=== PATIENT | female | born 2000 | race Caucasian/White ===

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

== ENCOUNTER → 2021-03-13 11:38 | Outpatient (BNVA) | payer OTHER, SELFPAY | PROVIDERS: PCP Nurse Practitioner Family; Visit Provider Emergency Medicine | DX: Z20.822 Contact with and (suspected) exposure to COVID-19 (principal) | CPT/HCPCS: 87635 ==

== ENCOUNTER → 2021-05-05 17:20 | Outpatient (BNVA) | payer OTHER, SELFPAY | PROVIDERS: PCP Nurse Practitioner Family; Visit Provider Emergency Medicine | DX: Z20.822 Contact with and (suspected) exposure to COVID-19 (principal) | CPT/HCPCS: 87635 ==

== ENCOUNTER 2022-02-28 19:32 | Emergency (ER) | payer OTHER, SELFPAY ==
--- NOTE | 2022-02-28 19:51 | XRR_ITS ---
PROCEDURE INFORMATION: Exam: XR Left Knee Exam date and time: 02/28/2022 7:55 PM Age: 21 years old Clinical indication: Injury or trauma; Other: Kicking and felt knee twist; Other: Twisting of joint; Additional info: Pain TECHNIQUE: Imaging protocol: Radiologic exam of the Left knee. Views: 3 views. COMPARISON: No relevant prior studies available. FINDINGS: Bones/joints: Normal. Soft tissues: Normal. XR/XR knee LT 3V* [id number] IMPRESSION: No acute findings.
[2022-02-28 20:38] VITALS: BP 139/90; PULSE 109; RESP 16; TEMP 36.7; BMI 34.3
--- NOTE | 2022-02-28 20:49 | ED_ITS ---
HPI - Extremity Problem General: Chief complaint: Extremity Injury, Lower Stated complaint: left knee injury Time Seen by Provider: 02/28/22 20:48 History of Present Illness: 21-year-old female comes in today with injury to the left knee. Patient reports jumping and landing with her left leg on the ground and her right leg in a kick. Patient then did another bounce on the left leg with another kick with the right leg. Patient felt like her knee gave out and since then has had increased pain and discomfort with weightbearing to the knee. Review of Systems Musc: Reports: joint pain (Left knee) PFS ED PFSH: Medical History Iron deficiency Status migrainosus Family History Other No pertinent family history Social History Smoking and tobacco status: never smoked History of recent travel: No Female Reproductive History: Date of last menstrual period: 02/26/22 Physical Exam Const: COMMON NORMALS: alert HENMT: COMMON NORMALS: normocephalic HEAD & SCALP: normocephalic Resp: COMMON NORMALS: normal respiratory effort Cardio: COMMON NORMALS: regular rate RATE: regular rate Extremity: COMMON NORMALS: full ROM Neuro: SENSORIUM/ORIENTATION: Yes alert Skin: COMMON NORMALS: turgor normal GENERAL SKIN EXAM: turgor normal Course Vital Signs: Vital signs: Vital Signs Temperature 98.0 F 02/28/22 20:38 Pulse Rate 109 H 02/28/22 20:38 Respiratory Rate 16 02/28/22 20:38 Blood Pressure 139/90 02/28/22 20:38 Oxygen Delivery Me thod 02/28/22 20:38 MDM - Extremity (Nontraumatic) Medical Decision Making 21-year-old female comes in today for complaints of injury to the left knee. On exam patient has joint line tenderness on the medial aspect of the knee. Minimal swelling is noted. No tenderness is noted in the posterior part of the knee. Distal pulses and sensation are intact. Differential diagnosis includes but not limited to knee sprain, ACL/MCL injury, meniscal injury, fracture. X- ray noted no fracture or misalignment of the knee. Recommend patient go nonwei ghtbearing and use an elastic bandage and follow-up in 1 week with orthopedics for further evaluation and treatment. Patient was recommended to decrease activity and increase as tolerated. Case management was requested to assist patient with follow-up with orthopedics. Patient reported understanding agreed to plan. Lab Data Radiology Impressions Knee X-Ray 02/28/22 19:51 IMPRESSION: No acute findings. Discharge Plan Discharge Patient Disposition: Home Clinical Impression: Acute internal derangement of knee Qualifiers: Laterality: left Qualified Code(s): M23.92 - Unspecified internal derangement of left knee Condition: Stable Prescriptions: New ibuprofen 600 mg tablet 600 mg PO Q6H PRN (Reason: pain) Qty: 60 0RF Discharge Orders: Discharge ED (Routine); Ordered 02/28/22 Ordered By: Max Mcnamara Patient Instructions: Knee Sprain (ED) Activity Restrictions/Additional Instructions: Home and rest. Activity as tolerated. Increase weightbearing as tolerated. Use crutches until he can bear weight comfortably. Use ice and heat for further comfort. Use acetaminophen and ibuprofen for pain. Case management will contact you regarding follow-up with orthopedist. Coding Level of Care Code ED Independent Jeweler for Naveed Win
[2022-02-28 21:26] VITALS: BP 137/88; PULSE 97; RESP 18; TEMP 36.7; O2SAT 98
--- NOTE | 2022-03-01 10:37 | DCPLANNER ---
Addendum entered by Agnes Christiansen 03/06/22 15:15: Patient had a follow up appointment scheduled with ortho - patient did attend appointment. Addendum entered by Agnes Christiansen 03/01/22 14:45: Patient has a follow up appointment scheduled for Thursday, March 03, 2022 at 9:[address] Bates at ortho. Clinic will call patient with appointment information. Original Note: guest relations manager had message to schedule a follow up appointment for patient with ortho. guest relations manager sent patients information to the front office staff at ortho. Patients information will be printed and reviewed. Clinic will call patient with appointment information.
== END 2022-02-28 21:30 | disposition home or self-care (01) ==
PROVIDERS: Emergency Provider Nurse Practitioner Family
DX: M23.92 Unspecified internal derangement of left knee (principal)
CPT/HCPCS: 73562; 99283; E0114

== ENCOUNTER 2022-03-03 13:37 | Outpatient (CLI) | payer OTHER, SELFPAY | END 2022-03-03 13:38 | disposition home or self-care (01) | LOC: SPT 13:38 | PROVIDERS: Visit Provider Student in an Organized Health Care Education/Training Program | DX: S83.512D Sprain of anterior cruciate ligament of left knee, subsequent encounter (principal); X58.XXXD Exposure to other specified factors, subsequent encounter | CPT/HCPCS: 97760; L1832 ==

== ENCOUNTER 2022-03-06 17:43 | Outpatient (CLI) | payer OTHER, SELFPAY ==
--- NOTE | 2022-03-06 17:57 | MR_ITS ---
WS: [id number] MRI LEFT KNEE HISTORY: Tears of meniscus and ACL of left knee COMPARISON: Radiographs 02/28/2022 Anterior cruciate ligament: Acute, complete tear of the central ACL. There is a large amount of edema especially within the proximal ACL. Posterior cruciate ligament: Intact. Medial collateral ligament: Intact. Posterior lateral corner structures: Fluid along the proximal popliteus tendon. Medial menisci: Very slight increased T2 signal towards the meniscal root of the posterior horn. Susp icious for a very subtle tear. Anterior horn is negative. Lateral meniscus: No tear. Extensor mechanism: Distal quadriceps tendon and patellar tendons are intact. Fluid and soft tissue: Moderate joint effusion. There is fluid in the suprapatellar bursa but also po sterior to the femoral condyles and in the surrounding soft tissues. There is a well rounded 6.3 mm l oose body in the fluid along the posterior lateral femoral condyle. No Israel's cyst. Osseous and articular structures: Patellofemoral compartment: Normal. Medial compartment: No significant narrowing of the medial compartment. Large amount of marrow edema along the medial tibial plateau and a small amount of edema in the medial femoral condyle. Lateral compartment: No significant narrowing of the joint spaces. There is a large amount of marrow edema in the tibial plateau and additional moderate marrow edema in the anterolateral femoral condyle . MR/MR knee LT wo con* [id number] IMPRESSION: 1. Complete tear ACL. 2. Extensive marrow edema along the tibial plateau. Marrow edema involves the medial and lateral tibial plateau and greatest posteriorly. 3. Additional marrow edema within the femoral condyles. No fracture. 4. Moderate joint effusion with a 6.3 mm loose body in the fluid over the post erior lateral femoral condyle. Donor site undetermined. 5. Popliteus tendon sprain. 6. Highly suspicious but indeterminate for meniscal tear involving the menisca l root posterior horn medial meniscus.
== END 2022-03-06 17:44 | disposition home or self-care (01) ==
LOC: RAD 17:45
PROVIDERS: Visit Provider Student in an Organized Health Care Education/Training Program
DX: S83.512A Sprain of anterior cruciate ligament of left knee, initial encounter (principal); S83.207A Unspecified tear of unspecified meniscus, current injury, left knee, initial encounter; X58.XXXA Exposure to other specified factors, initial encounter
CPT/HCPCS: 73721

== ENCOUNTER 2022-03-17 08:54 | Day surgery (SDC) | payer OTHER, SELFPAY ==
[2022-03-16 10:01] VITALS: BMI 34.3
[2022-03-17] VITALS (10 sets, daily range): BP systolic 127–153; BP diastolic 78–100; PULSE 70–113; RESP 15–29; TEMP 36.4–37.3; O2SAT 93–99
[2022-03-17] MEDS: sodium chloride 0.9% 1,000 ML 30 ML IV (09:33)
[2022-03-17] MEDS: ketorolac 30 mg/mL INJ IVP (09:34)
--- NOTE | 2022-03-17 09:49 | ANES.PREANE2 ---
Pre-Anesthetic Assessment Height/Weight: Height 1.5 m Weight 77.111 kg Temp Pulse Resp BP Pulse Ox O2 Del Method 98.1 F 70 16 145/89 99 03/17/22 09:10 03/17/22 09:10 03/17/22 09:10 03/17/22 09:10 03/17/22 09:10 03/17/22 09:10 Preop Diagnosis: Left knee ACL tear, medial meniscus root tear, loose body Operation Date: 03/17/22 10:30 Proposed Procedures p [LEFT KNEE DIAGNOSTIC AND SURGICAL ARTHROSCOPY 59037, ANTERIOR CRUCIATE LIGAMENT RECONSTRUCTION WITH BONE TENDON BONE AUTOGRAFT 79219, LOOSE BODY REMOVAL 14434, WITH MEDIAL MENISCAL REPAIR VERSUS PARTIAL MEDIAL MENISCECTOMY 65417,M25.569(Left) - Ben Pollack DO s ACL Repair Anterior Cruciate Ligament Reconstruction(Left) - Ben Pollack DO Familial anesthetic complications: none Was Beta Amira taken within 24 hours: N/A Was Clonidine taken within 24 hours: N/A Last intake: Intake Last Liquid Date 03/16/22 Last Liquid Time 23:00 Last Solid Date 03/16/22 Last Solid Time 22:00 Social No alcohol and No tobacco Exam alert, oriented x 3, clear to auscultation bilaterally and regular rate & rhythm Airway Submandibular: within normal limits Cervical ROM: within normal limits Mallampati: Class II Dentition: full CV/HEM Anemia Anesthetic Plan ASA status: 2 Anesthesia: General and Regional (specify below) (adductor blk) Medications/Allergies Home Medications Medication Instructions Recorded Confirmed Last Taken Type ACL HINGED KNEE BRACE - LEFT #1 ea 03/03/22 03/13/22 Unknown Rx Allergies Allergy/AdvReac Type Severity Reaction Status Date / Time acetaminophen [From Vicodin] Allergy Swelling Verified 03/16/22 09:54 and breathing problems hydrocodone [From Vicodin] Allergy Swelling Verified 03/16/22 09:54 and breathing problems Penicillins Allergy swelling Verified 03/16/22 09:54 and breathing problems Current Medications Generic Name Dose Route Start Last Admin Trade Name Freq PRN Reason Stop Dose Admin Sodium Chloride 1,000 mls @ 30 mls/hr 03/17/22 09:00 03/17/22 09:33 Sodium Chloride 0.9% IV 03/18/22 08:59 30 mls/hr .Q24H GIL Administration PFSH Anesthesia Medical History Iron deficiency Status migrainosus Tears of meniscus and ACL of left knee Family History Other No pertinent family history Social History Smoking and tobacco status: never smoked History of recent travel: No Female Reproductive History Date of last menstrual period: 02/26/22 Data Anesthesia Cardiac Studies: No Data to Display
--- NOTE | 2022-03-17 11:15 | W.PM.OPSUD ---
Surgery/Procedure H&P Update DATE OF PROCEDURE: March 17, 2022 DATE H&P PERFORMED: 03/13/22 CHANGES TO PREVIOUS DOCUMENTATION: None PREOP DIAGNOSIS: Left knee ACL tear, medial meniscus root tear, loose body PRIMARY INDICATION FOR PROCEDURE: Left knee complete ACL tear, medial meniscal root tear and loose body. PLANNED PROCEDURE: Operation Date: 03/17/22 10:30 Proposed Procedures p [LEFT KNEE DIAGNOSTIC AND SURGICAL ARTHROSCOPY 24979, ANTERIOR CRUCIATE LIGAMENT RECONSTRUCTION WITH BONE TENDON BONE AUTOGRAFT 47516, LOOSE BODY REMOVAL 25244, WITH MEDIAL MENISCAL REPAIR VERSUS PARTIAL MEDIAL MENISCECTOMY 23403,M25.569(Left) - DO cathryn Levin ACL Repair Anterior Cruciate Ligament Reconstruction(Left) - Ben Pollack DO
[2022-03-17] MEDS: vancomycin 1,000 MG in sodium chloride 0.9% 250 ML 250 MG IV (11:23)
--- NOTE | 2022-03-17 13:33 | PC.NURSE ---
CALLED TO UPDATE NAINA CESAR, OF PROCEDURE PROGRESS. STATED VSS.
--- NOTE | 2022-03-17 14:23 | ANES.PROC ---
Anesthesia Procedures Procedure/Date: 03/17/22 Nerve Block ^: Nerve Block 1: Main Anesthesia: general anesthesia Time Out Performed: Yes Consent: requested by attending/covering physician, from patient, risks and benefits reviewed and patient agrees to proceed Nerve block location: adductor canal (left) Anesthesia monitors applied: pulse oximetry, EKG, BP cuff and oxygen Nerve block position: supine Anesthetic Used: ropivicaine 0.5% Amount of anesthesia used (mL): 20 Ultrasound used to: recognize landmarks Nerve Stimulator Used?: No Interscalene/Femoral BLK: 4 stimuplex 21 g needle used for position and inplane approach Injection: neg aspiration of heme Patient Tolerated Procedure: well Complications: none
--- NOTE | 2022-03-17 15:30 | SUR.PHASEI ---
patient into pacu with lma in place and simple mask at 8L. Patient sats at 99%. patient has dressing to left knee in place and dry, knee brace in place. lma removed by wood model maker. remains on simple mask with sat at 97%.
--- NOTE | 2022-03-17 15:46 | PM.OP2 ---
Brief Operative Note Date of procedure: 03/17/22 Pre-op diagnosis: Left knee ACL tear, medial meniscus tear, loose body Post-op diagnosis: other (Left knee complete ACL tear) Procedure Done: Left knee diagnostic and surgical arthroscopy with bone patellar tendon bone autograft and ACL reconstruction Surgeon: Ben Pollack Estimated blood loss (mL): 15 Complications: None Post-op Plan: Patient recover in PACU. Given appropriate discharge instructions as well as pain medication. Patient to follow-up in orthopedic office in 2 weeks. Will discharge home later today. Condition: stable Disposition: same day Coding Level of Care Code Acute Saturation Equipment Operator for Naveed Win
--- NOTE | 2022-03-17 15:49 | PM.PACU ---
PACU note Narrative: Patient recovering in PACU. Patient wiggle toes plantarflex dorsiflex ankle toes are warm well-perfused distal pulses palpable. Knee brace on and in place. Patient will recover in PACU and discharge home later today. Exam: awake (See narrative for detailed exam) Disposition: discharged
[2022-03-17] MEDS: ondansetron 2 mg/ML SDV 2 mL 4 MG IVP (16:25)
--- NOTE | 2022-03-17 16:40 | ANE.PACU2 ---
Inpatient post-anesthesia follow up: Airway intact: Yes Vital signs: Temperature 98 F Pulse Rate 98 Respiratory Rate 18 Blood Pressure 141/78 Pulse Oximetry 94 Oxygen Delivery Me thod Room Air Oxygen Flow Rate 8 Fraction of Inspir ed Oxygen Hydration adequate: Yes Nausea and vomiting: No Pain level: 3 Mental status: Baseline
--- NOTE | 2022-03-17 17:00 | P.OP_ITS ---
Operative Report Date of procedure: March 17, 2022 Pre-op diagnosis: Preop Diagnosis Left knee ACL tear, medial meniscus root tear, loose body Post-op diagnosis: Left knee complete ACL rupture Post-op findings: No medial meniscus root tear and no evidence of loose body or cartilage defect Procedure done: Left knee diagnostic and surgical arthroscopy with bone patellar tendon bone autograft, ACL reconstruction Implants: Arthrex titanium cannulated interference screw Arthrex fast thread bio composite interference screw 4.75 bio composite swivel lock Surgeon: Ben Pollack DO Estimated blood loss (mL): 15 135 min IV fluids: See anesthesia record Complications: None Findings: See operative note Condition: stable Disposition: same day Brief History: Patient's been seen and worked up in the outpatient setting sustained a noncontact injury to her left knee. She had a positive Hailey on examination she had a MRI that was performed showed findings with concerning for possible medial meniscus tear a complete ACL rupture as well as a possible loose body with no noticeable cartilage donor site. Given her young age would recommend surgical intervention of left knee diagnostic and surgical arthroscopy with bone patellar tendon bone autograft for ACL reconstruction, as well as loose body rem oval and medial meniscus repair versus partial meniscectomy. Had detailed discussion of his treatment options of the office. She understands the risk benefits complications alternatives to surgical and nonsurgical treatment options at this point time agrees to proceed with surgical intervention. All questions answered. Procedure: Patient seen evaluated in preoperative holding area. Consent was reviewed with patient. Correct extremity was then marked. Patient was seen evaluated by the anesthesia department once ready for surgery she was taken back to the operative suite and placed onto the OR table. She then underwent anesthesia per the anesthesia department. All bony prominences were well-padded patient was appropriately secured to the table. A nonsterile tourniquet was applied to the left thigh. This point time the foot of the bed was then dropped the right lower extremity was secured in the left knee was allowed to suspend a standard arthroscopy post was placed on the lateral aspect of the left knee. Examination under anesthesia performed of the left knee demonstrating a a positive Hailey with no endpoint as well as a positive pivot shift. No evidence of varus valgus instability noted. She does have baseline naturally hyperextend 5 to 10 degrees. With full flexion noted. This point time the left lower extremities then prepped and draped in standard orthopedic fashion. Patient received appropriate preoperative antibiotics. Final timeout was performed. Esmarch tourniquet was used exsanguinate the extremity and the tourniquet was insufflated. This point time started with my BTB graft harvest. Standard midline incision centered over the inferior pole the patella and over the tibial tubercle sharp scalpel incision through subcutaneous tissue and fat and then directly down over the peritenon which was split longitudinally I then dissected this out with Metzenbaum scissors to create appropriate full-thickness flaps. Next point I then identified the patellar tendon I then marked out the appropriate bone plugs both proximally and distally and then a standard 10 mm graft with of the center third of the patellar tendon. I then initially made incision harvesting the BTB. With 15 blade scalpel with care to keep this under appropriate tension next I then utilized a microsagittal saw and harvested by bone plugs both proximally and distally. While in the wound bed I then drilled my commuter pilot holes for suture passing for later graft passage. I utilized 1/4 inch osteotome to free up the graft and then utilized Metzenbaum scissors to excise out both plugs and the rest of the tendon. I then took my graft to the back table. This measured roughly a total graft length of 80 mm which given patient's stature anticipated a shorter graft. Bone plugs passed smoothly through 10 mm. I then showed old 2-0 FiberWire's through each end of the bone plugs and then this was then wrapped in a moist lap and was protected on the back table. Next I proceeded with my diagnostic and surgical arthroscopy using standard vertical portals laterally and medially. I then entered the suprapatellar pouch evacuated hemarthrosis. No chondral damage was noted in the patellofemoral joint and the suprapatellar pouch was free of any loose bodies. I then went through the medial gutter no loose bodies noted. Entering the medial compartment I established my medial portal utilizing spinal needle site in technique. Entered the medial compartment which showed pristine articular cartilage of the medial compartment and no evidence of medial meniscus tear. I then utilizing a valgus stress as well as introduced the probe I then evaluated the posterior medial meniscus root and probed this and thoroughly evaluated and no evidence of medial meniscus tear at the root was noted. I then entered the intercondylar notch this point utilized arthroscopic shaver then to debrided and remove the ACL this was completely ruptured off the femoral wall. I then debrided and left the footprint at the tibial insertion to allow for a target for my tibial guide. Next I then debrided the rest of the ACL keeping the PCL intact which was pristine. I then performed a small notchplasty just for better visualization and graft tunnel placement. Once this was completed I then entered the lateral compartment which showed no evidence of lateral meniscus tear with pristine lateral articular cartilage. I then reviewed the lateral gutter and there is no evidence of loose bodies. I then drove into the retrograde she had space and then tapped the back of the knee to try and evaluate her to see if any loose body would come free. I utilized the probe and to the popliteal hiatus and under direct visualization there was no evidence of any loose body. At this point time I determine that the MRI findings of a possible medial root tear did not exist as this was probed and viewed thoroughly and was robustly fixed and no evidence of tear as far as a loose body there was no evidence in any aspect of this knee or any cartilage damage noted where a donor site would have been consistent for a loose body as a result I proceeded with the ACL reconstruction. I started with my tibial tunnel placement. I sent my appropriate guide length to accommodate patient's shorter graft. At this point time I then drilled a guidewire this was centered at the footprint of the ACL. Satisfied with my placement I then drilled utilizing a 10 mm reamer. This point we captured all of the reamings and saved for later bone grafting of our removed bone plugs. I introduced the arthroscopic shaver to then debride the bone tunnel and any debris along the footprint. Once this was done I then plugged the tibial tunnel and then proceeded with the femoral tunnel. I switched arthroscopic portals and then had direct visualization of the posterior wall and my planned placement at the 2 o'clock position of the intercondylar notch at the appropriate femoral tunnel placement. I then utilized an outside hand guide. To my lateral portal. I then slid down the guide sleeve to david my entry point for incision I then made my standard lateral incision sharp scalpel excision through skin and subcutaneous tissue directly onto IT fascia. This was split longitudinally at the midline. I then dissected straight down to bone. I cleared off any periosteum side have direct visualization of my bone tunnel. I then slid the drill sleeve down while holding in anatomic femoral tunnel placement position I then drilled a guidepin this was in appropriate position and then reamed with my 10 mm reamer. We then drove the camera up the femoral tunnel and had excellent position with no backwall blowout appropriate 2 to 3 mm of backwall was left. This was an appropriate 2 o'clock position. Point time introduce arthroscopic shaver debrided all residual bony fragments in each tunnels it was ready for graft passage. I then introduced my shuttling FiberWire suture through the femoral tunnel and out the tibial tunnel I then grabbed my BTB autograft from the back table and then loaded my sutures and shuttled of my graft up through the bone tunnels. This was done under direct visualization with arthroscopy. I then felt both bone plugs on both ends with appropriate tunnel match. This point time I started with my femoral tunnel interference screw fixation I had my graphic design assistant hold tension on my tibial bone plug in the knee was placed in deep flexion. I then placed my guidewire beside my femoral bone plug and then placed my appropriately sized interference screw and had excellent fixation this was secured appropriately while holding appropriate tension and had excellent fixation and compression of the interference screw and bone plug. This was made to be flush with the bone and no protrusion was noted. At this point time I then maintain tension and cycled the knee 20 times. This point time then move towards our tibial fixation. Brought into Daugherty stand and held the knee and 20 degrees while axially loading and pulling with extreme tension introduced my my guidewire and then introduced my interference screw which was metal. While introducing metal interference screw this did not appear to cut one of my sutures and lose some my traction ability to keep tension on my bone plug. As result to help augment with this traction I then introduced 2 Arthrex is meniscal fiber loop luggage tag sutures. These were then again shuttled back down through the tibial tunnel. I then again recycled the knee to condition the graft. I positioned the knee to 20 degrees of flexion with axial loading holding downward inferior pressure on the FiberWire tape suture at this point I then utilized a Arthrex bio composite screw which then maintaining appropriate tension had excellent fixation of my tibial bone plug. In order to backup fixation I then loaded up my suture tape and then drilled tapped and then placed a 4.75 swivel lock with Arthrex into the medial face of the tibia just distal to my tibial tunnel. This completed my ACL reconstruction at this point patient had a very stable and robust Hailey's with no laxity. Negative pivot shift this point time took final imaging of the ACL reconstruction appropriate tunnel placement. All fluid was evacuated from the knee. Tourniquet was deflated. Hemostasis was found to be satisfactory. I then reapproximated my patellar tendon with 0 Vicryl suture. I then packed the harvested bone graft reamings into the patella and tibial tubercle bone plug sites. I then closed the peritenon over this. I then utilized 0 and 2-0 Vicryl to close the subcutaneous and skin and then Monocryl was used to close skin edges. Dermabond glue was placed over the incision anteriorly and then an interrupted Monocryl suture was used to close the portal. Those incisions were then approximated with Steri-Strips. The lateral incision of the femur was then closed in deep to superficial fashion with 0 interrupted Vicryl suture to reapproximate the IT band 2-0 Vicryl and then running Monocryl suture as well as Dermabond and Steri-Strips close the skin. Toes are warm well perfused distal pulses palpable. Patient's incisions were then appropriately dressed with 4 x 4's ABD Curlex soft roll and a 6 inch Daljit wrap. When patient was awakened from anesthesia she was appropriately secured in her ACL hinged knee brace. She was then awakened from anesthesia transported the [facility] and taken to PACU in stable condition. Time patient tolerated procedure without complications. Disposition: Patient taken to PACU in stable condition. ACL hinged knee brace on in place. Will be given appropriate discharge instructions as well as pain medication DVT prophylaxis as well as anti-inflammatory medication and antinausea medication. She will follow-up with me in office in 2 weeks. We will coordinate with patient's therapy and corporate sales trainer as far as postoperative rehab protocol.
--- NOTE | 2022-03-18 15:29 | P.MISC_ITS ---
Miscellaneous Note Purpose of Documentation: 03/18/2022: Was contacted earlier this morning by patient's mother through the on-call service as she states patient was having significant pain and issues. Asked if her toes were warm her perfusion is still felt slightly cold but she was able to wiggle her toes and endorses normal sensation. She has had her dressing as well as brace on in place. Unfortunately patient is taken [place] in the past and had some issues with swelling and breathing as result we had to give her tramadol for her pain. This point time our options as far as pain medication are somewhat limited. Had detailed discussion with her about starting off with taking down patient's Daljit wrap to loosen as normal postoperative swelling it may become too tight. In the meantime I looked over patient's chart with our pharmacist just to see if there is any possible options of alternative medications for pain. We talked about increasing patient's tramadol up to 100 mg every 6 hours which we will send her a new prescription in for that. She did receive some Dilaudid intraoperatively at this point time we will try giving her a small dose of rescue breakthrough pain of a p.o. Dilaudid. And we will discontinue the Mobic and have patient take 800 mg ibuprofen every 6. Couple hours later patient's mother was contacted to evaluate how she was doing. Patient mother states her pain is significantly relieved and feels extremely better after having the Daljit wrap taken down. She states her foot feels significantly improved warm well-perfused brisk capillary refill less than 2 seconds. At this point time her pain is well controlled with her medications. Sounds as though patient's dressing had gotten too tight sounds as this is resolved most of her pain or discomfort. In the meantime though we will change some of her pain regimen just to help her get the pain through the weekend. I did discuss about sending the Dilaudid in that it seems as though she should be able to tolerate this medication but if they have any questions or concerns should only use this as a last ditch effort. Understand she should take some Benadryl if they notice any symptoms when they take the Dilaudid or report to the emergency department. We sent new prescriptions to patient's pharmacy in [place]. Mom very appreciative. We will see her at her follow-up visit.
[2022-03-21 08:44] LABS: OR HCG Qualitative Urine Negative (Negative)
== END 2022-03-17 17:40 | disposition home or self-care (01) ==
PROVIDERS: PCP Family Medicine; Visit Provider Student in an Organized Health Care Education/Training Program
PROC: (CPT 29870; principal; 2022-03-17 10:30)
PROC: (CPT 27407; 2022-03-17 10:30)
DX: S83.512A Sprain of anterior cruciate ligament of left knee, initial encounter (principal); S83.242A Other tear of medial meniscus, current injury, left knee, initial encounter; M23.42 Loose body in knee, left knee
CPT/HCPCS: 29861; 29888; 36415; 81025; 84703; 86850; 86900; C1713; J1170; J1885; J2250; J2405; J2704; J2795; J3010; J3370; J3490; J7030; J7050

== ENCOUNTER 2022-03-21 06:00 | Outpatient (RCR) | payer OTHER, SELFPAY | END 2022-04-17 23:59 | disposition home or self-care (01) | LOC: MPT 06:00 | PROVIDERS: PCP Family Medicine; Visit Provider Student in an Organized Health Care Education/Training Program | DX: Z47.89 Encounter for other orthopedic aftercare (principal); M25.562 Pain in left knee | CPT/HCPCS: 97110; 97161 ==

== ENCOUNTER → 2022-03-31 08:08 | Outpatient (BNVA) | payer OTHER, SELFPAY | PROVIDERS: PCP Family Medicine; Visit Provider Student in an Organized Health Care Education/Training Program | DX: S83.512A Sprain of anterior cruciate ligament of left knee, initial encounter (principal); X58.XXXA Exposure to other specified factors, initial encounter | CPT/HCPCS: 73560 ==

== ENCOUNTER 2022-04-18 06:00 | Outpatient (RCR) | payer OTHER, SELFPAY | END 2022-05-17 23:59 | disposition home or self-care (01) | LOC: MPT 06:00 | PROVIDERS: PCP Family Medicine; Visit Provider Student in an Organized Health Care Education/Training Program | DX: Z47.89 Encounter for other orthopedic aftercare (principal); M25.562 Pain in left knee | CPT/HCPCS: 97110; 97112 ==

== ENCOUNTER 2022-05-18 06:00 | Outpatient (RCR) | payer OTHER, SELFPAY | END 2022-06-17 23:59 | disposition home or self-care (01) | LOC: MPT 06:00 | PROVIDERS: Visit Provider Student in an Organized Health Care Education/Training Program | DX: Z47.89 Encounter for other orthopedic aftercare (principal); M25.562 Pain in left knee | CPT/HCPCS: 97110; 97112; 97140; 97530 ==

== ENCOUNTER 2022-05-26 05:53 | Day surgery (SDC) | payer OTHER, SELFPAY ==
[2022-05-25 09:55] VITALS: BP 121/70; PULSE 91; RESP 16; TEMP 36.2; O2SAT 99
[2022-05-25 12:41] VITALS: BMI 34.3
[2022-05-26] VITALS (10 sets, daily range): BP systolic 99–130; BP diastolic 59–91; PULSE 81–104; RESP 12–18; TEMP 35.9–36.3; O2SAT 95–100
[2022-05-26 06:09] LABS: OR HCG Qualitative Urine Negative (Negative)
[2022-05-26] MEDS: sodium chloride 0.9% 1,000 ML 30 ML IV (06:42)
[2022-05-26] MEDS: ketorolac 30 mg/mL INJ IVP (06:42)
[2022-05-26] MEDS: clindamycin 600 MG/50 ML PREMIX 100 MG IV (07:03)
--- NOTE | 2022-05-26 07:06 | W.PM.OPSUD ---
Surgery/Procedure H&P Update DATE OF PROCEDURE: May 26, 2022 DATE H&P PERFORMED: 05/23/22 CHANGES TO PREVIOUS DOCUMENTATION: None We had discussion about her current range of motion which is roughly 0-1 15. She has been able to get up to 120 in physical therapy. However she feels as though she is plateaued over the past several weeks and ultimately for her her baseline is over 130 degrees. At this point time we discussed her treatment options and she would really like to regain her last 10 to 15 degrees range of motion to be more comparable to her contralateral extremity. She does understand the importance of her immediate range of motion after. We will get her an aggressive physical therapy. Understands risk benefits complication alternatives of surgical treatment options and agrees to proceed. PREOP DIAGNOSIS: Left knee arthrofibrosis PRIMARY INDICATION FOR PROCEDURE: Left knee arthrofibrosis status post left knee ACL reconstruction PLANNED PROCEDURE: Operation Date: 05/26/22 07:00 Proposed Procedures p Left knee manipulation under anesthesia 21143 and Diagnostic and surgical left knee lysis of adhesions 09656,M24.661(Left) - DO cathryn Levin Diagnostic and surgical left knee lysis of adhesions 44315(Left) - Ben Pollack DO
--- NOTE | 2022-05-26 07:42 | ANES.PREANE2 ---
Pre-Anesthetic Assessment Height/Weight: Height 1.5 m Weight 77.111 kg Temp Pulse Resp BP Pulse Ox O2 Del Method 97 F L 83 18 120/71 97 05/26/22 06:18 05/26/22 06:18 05/26/22 06:18 05/26/22 06:18 05/26/22 06:18 05/26/22 06:21 Preop Diagnosis: Left knee arthrofibrosis Operation Date: 05/26/22 07:00 Proposed Procedures p Left knee manipulation under anesthesia 79174 and Diagnostic and surgical left knee lysis of adhesions 09293,M24.661(Left) - Ben Pollack DO s Diagnostic and surgical left knee lysis of adhesions 42005(Left) - Ben Pollack DO Familial anesthetic complications: none Was Beta Amira taken within 24 hours: N/A Was Clonidine taken within 24 hours: N/A Last intake: Intake Last Liquid Date 05/25/22 Last Liquid Time 22:00 Last Solid Date 05/25/22 Last Solid Time 22:00 Social No alcohol and No tobacco Exam alert, oriented x 3, clear to auscultation bilaterally and regular rate & rhythm Airway Submandibular: within normal limits Cervical ROM: within normal limits Mallampati: Class II Dentition: full CV/HEM Anemia Anesthetic Plan ASA status: 2 Anesthesia: General and Regional (specify below) (left adductor blk) Medications/Allergies Home Medications Medication Instructions Recorded Confirmed Last Taken Type leg brace 03/17/22 05/23/22 Unknown History hydromorphone 2 mg tablet 2 mg PO Q4H PRN pain, severe 5 03/18/22 05/25/22 Unknown Rx (Dilaudid) days #30 tabs ibuprofen 800 mg tablet 800 mg PO Q6H 14 days #56 tabs 03/18/22 05/26/22 05/24/22 17:00 Rx Allergies Allergy/AdvReac Type Severity Reaction Status Date / Time acetaminophen [From Vicodin] Allergy Swelling Verified 05/25/22 12:40 and breathing problems hydrocodone [From Vicodin] Allergy Swelling Verified 05/25/22 12:40 and breathing problems Penicillins Allergy swelling Verified 05/25/22 12:40 and breathing problems Current Medications Generic Name Dose Route Start Last Admin Trade Name Freq PRN Reason Stop Dose Admin Sodium Chloride 1,000 mls @ 30 mls/hr 05/26/22 06:00 05/26/22 06:42 Sodium Chloride 0.9% IV 05/27/22 05:59 30 mls/hr .Q24H GIL Administration PFSH Anesthesia Medical History Complete tear of anterior cruciate ligament of left knee Iron deficiency Status migrainosus Tears of meniscus and ACL of left knee Family History Other No pertinent family history Social History Smoking and tobacco status: never smoked History of recent travel: No Female Reproductive History Date of last menstrual period: 02/26/22 Data Anesthesia Cardiac Studies: No Data to Display Anesthesia Procedures Nerve Block Nerve Block 1: Main Anesthesia: general anesthesia Time Out Performed: Yes Consent: requested by attending/covering physician, from patient, risks and benefits reviewed and patient agrees to proceed Nerve block location: adductor canal (left) Anesthesia monitors applied: pulse oximetry, EKG, BP cuff and oxygen Nerve block position: supine Anesthetic Used: ropivicaine 0.5% Amount of anesthesia used (mL): 20 Ultrasound used to: recognize landmarks Nerve Stimulator Used?: No Interscalene/Femoral BLK: 4 stimuplex 21 g needle used for position and inplane approach Injection: neg aspiration of heme Patient Tolerated Procedure: well Complications: none
--- NOTE | 2022-05-26 08:37 | P.OP_ITS ---
Brief Operative Note Date of procedure: 05/30/22 Pre-op diagnosis: Left knee arthrofibrosis status post ACL reconstruction Post-op diagnosis: same Procedure Done: Left knee manipulation under anesthesia Left knee arthroscopy with lysis of adhesions Surgeon: Ben Pollack Estimated blood loss (mL): 5 Complications: None Post-op Plan: Patient taken to PACU in stable condition recovering well. Dressing on in place clean dry and intact. Patient received appropriate discharge instructions as well as DVT prophylaxis and pain medication postoperatively. We will get her aggressively working with therapy with goals of 3 times a week to aggressively regain her range of motion that she had broken through scar from surgery. Patient can be weightbearing as tolerated left lower extremity she will see me in office in 2 weeks. Condition: stable Disposition: same day Coding Level of Care Code Acute Senior Biostatistician/Group Leader for Naveed Win
--- NOTE | 2022-05-26 08:37 | PM.PACU ---
PACU note Narrative: Patient recovering well in PACU. Pain well controlled. Dressing clean dry and intact. Patient able to wiggle toes plantarflex dorsiflex ankle. Sensation intact light touch distally. Exam: awake Disposition: discharged
--- NOTE | 2022-05-26 08:37 | PM.OP ---
Operative Report Date of procedure: May 26, 2022 Pre-op diagnosis: Preop Diagnosis Left knee arthrofibrosis Post-op diagnosis: Same Procedure done: -Left knee manipulation under anesthesia -Left knee diagnostic and surgical arthroscopy with lysis of adhesions Surgeon: Ben Pollack DO Estimated blood loss: 5 mL No tourniquet used IV fluids: See anesthesia record Complications: None Findings: See operative report narrative Condition: stable Disposition: same day Brief History: Patient's status post left knee ACL reconstruction with bone patellar tendon bone autograft. Overall she is progressed well after surgery. However she is plateaued with her range of motion. She is worked aggressively with therapy and has reached a halt and plateauing of her knee flexion. She does achieve full knee extension. Her Hailey's and's intact with good endpoint. At this point time she does have excessive range of motion on the contralateral knee and ultimately she would like for her needed touch the back of her leg. Currently she is 0-1 10 this morning and is plateaued between 110 and 115 with therapy. They have documented that they have been able to work her up to 120. However she easily ranges to greater than 135 at baseline in the office on the contralateral knee. We talked about treatment options far as continuing with therapy versus a manipulation under anesthesia and lysis of adhesions. Through shared decision making her her mother agreed to proceed with surgical intervention as patient feels she is unable to achieve this. I do feel examination irby that she does have some lack of patellar mobility and likely has some patellar adhesions the patient would likely benefit from surgical intervention. Through shared decision making we agreed to proceed with surgical intervention. All risk benefits complication alternatives of surgical nonsurgical treatment options were detailed thoroughly she understands her risks and agrees to proceed with surgical intervention. All questions answered. Procedure: Patient seen evaluate in the preoperative suite. Consent was reviewed with patient and signed. Correct extremity was marked. Seen by by anesthesia department she was then subsequently taken back to the operative suite. She was transported on the OR table all bony prominences well-padded patient was appropriately secured to the bed. Patient subsequently underwent anesthesia per the anesthesia department. Final timeout was performed. Patient received appropriate preoperative antibiotics Once appropriately anesthetized she then subsequently preoperative range of motion was checked she is able to achieve full extension to 0 and is only able to flex to 110 degrees at baseline. Once this was confirmed I then used lysing a short lever arm I slowly and gently increase patient's flexion and patient did have palpable releases of adhesions and scar tissue around the kneecap. I did mobilize him work the scar tissue of the patellar tendon to help with patellar mobilization patient had a gentle release and a Hailey was confirmed and had firm endpoint throughout this manipulation. Final check of her range of motion was 0 to roughly 135 which matched her contralateral extremity extremely well. At this point time I then had the left lower extremity prepped and draped in sterile orthopedic fashion with plan for arthroscopy. Once prepped and draped in sterile orthopedic fashion I then reinjected the portal sites as well as the knee joint with local anesthesia for pain. Next I then reestablished bilateral inferior lateral working portal vertical fashion introducing the arthroscope. Hemarthrosis was evacuated. Introduced the arthroscope into the suprapatellar pouch. This was free of any loose bodies. The patellofemoral joint had no evidence of chondromalacia. Patient did have multiple bands of adhesions and scar tissue within the patellofemoral joint. I then subsequently visualized the medial gutter which was free of loose bodies. I looked into the medial compartment. I then established my working portal medially. Utilizing spinal needle outside in technique. I established the working portal and through the arthroscopic shaver. This point time I thoroughly irrigated out the wound and evacuated all of the residual hemarthrosis. At this point time patient did have noticeable scar tissue over the anteromedial aspect of the knee. This was then excised. I then visualized the medial compartment and introduced the arthroscopic probe. Meniscus was pristine and intact as well as the articular cartilage. No loose bodies were noted. Next I visualize intercondylar notch. Patient's ACL reconstruction was intact with appropriate tension. Patient did have some moderate scar tissue adjacent to the PCL. I then introduced the arthroscopic shaver to debride this with care not to injure the ACL or PCL. This allowed for no soft tissue interposition within the intercondylar notch. I then visualized the lateral compartment. Lateral compartment was pristine with no chondromalacia or meniscal tear. In truth arthroscopic probe in the root was intact and there is no loose bodies noted posteriorly within the popliteal hiatus. I then visualized the lateral gutter which was pristine and no loose bodies. At this point time I began my lysis of adhesions which was performed predominantly at the patellofemoral compartment introducing arthroscopic shaver and thoroughly debrided out all the adhesions. I then switched portals for visualization medially and completed my lysis of adhesions with arthroscopic shaver at this time. This point time all instruments were withdrawn from the knee. Fluid was suctioned from the knee. I then closed the portal sites with nylon suture. Dry dressing was then applied with 4 x 4's ABD Curlex soft roll and Daljit wrap. Patient was then awakened from anesthesia and taken to PACU in stable condition. Patient tolerated procedure without complications. Disposition: Patient tolerated procedure without complications and his regained her range of motion with flexion comparable to her contralateral extremity. We will get her working aggressively in physical therapy. She received appropriate discharge instructions as well as pain medication DVT prophylaxis postoperatively. We will see her in office in 2 weeks. She will get set up with strict working on physical therapy and range of motion 3 times a week for the next couple weeks until follow-up. She does understand the importance of working on her range of motion. Patient mother understand agree with current plan. All questions answered.
--- NOTE | 2022-05-26 08:45 | P.PCN_ITS ---
PACU note Narrative: VSS, Good respiratory effort, report to LEVEL GLASS FORMING MACHINE OPERATOR Exam: awake
--- NOTE | 2022-05-26 08:45 | PM.PACU ---
PACU note Narrative: VSS, Good respiratory effort, report to MICROBIOLOGY LAB ANALYST Exam: awake
--- NOTE | 2022-05-26 15:45 | ANE.PACU2 ---
Inpatient post-anesthesia follow up: Airway intact: Yes Vital signs: Temperature 96.6 F Pulse Rate 81 Respiratory Rate 16 Blood Pressure 114/83 Pulse Oximetry 98 Oxygen Delivery Me thod Room Air Oxygen Flow Rate 6 Fraction of Inspir ed Oxygen Hydration adequate: Yes Nausea and vomiting: No Pain level: 2 Mental status: Baseline
== END 2022-05-26 09:18 | disposition home or self-care (01) ==
PROVIDERS: Anesthesiology; Visit Provider Student in an Organized Health Care Education/Training Program
PROC: (CPT 27570; principal; 2022-05-26 07:00)
PROC: (CPT 29870; 2022-05-26 07:00)
DX: M24.662 Ankylosis, left knee (principal); Z98.890 Other specified postprocedural states
CPT/HCPCS: 27570; 29884; 84703; J1100; J1885; J2405; J2704; J2795; J3010; J3490; J7030

== ENCOUNTER 2022-06-18 06:00 | Outpatient (RCR) | payer OTHER, SELFPAY | END 2022-07-18 23:59 | disposition home or self-care (01) | LOC: MPT 06:00 | PROVIDERS: Visit Provider Student in an Organized Health Care Education/Training Program | DX: Z47.89 Encounter for other orthopedic aftercare (principal) | CPT/HCPCS: 97110; 97112; 97530 ==

== ENCOUNTER 2022-07-19 06:00 | Outpatient (RCR) | payer OTHER, SELFPAY | END 2022-08-15 23:59 | disposition home or self-care (01) | LOC: MPT 06:00 | PROVIDERS: Visit Provider Student in an Organized Health Care Education/Training Program | DX: M25.562 Pain in left knee (principal) | CPT/HCPCS: 97110 ==

== ENCOUNTER 2022-07-27 16:23 | Emergency (ER) | payer OTHER, SELFPAY ==
[2022-07-27 16:39] VITALS: BP 124/80; PULSE 82; RESP 16; TEMP 36.6; O2SAT 98
--- NOTE | 2022-07-27 16:44 | ECG_ITS ---
[facility] Test Date: 2022-07-27 Pat Name: Ashley Chavez Department: Room: Gender: Female Post Acute Care Nurse: : 2000 Requested By: Abigail Ruiz Order Number: [id number] Jacobs MD: Ashlie Blum M.D. Measurements Intervals Morris Rate: 74 P: 28 AL: 143 QRS: 68 QRSD: 84 T: 19 QT: 362 QTc: 402 Interpretive Statements SINUS RHYTHM No previous ECG available for comparison Electronically Signed On 07-28-2022 7:54:24 INSPECTOR MECHANICAL by Ashlie Blum M.D. [id number]
[2022-07-27 17:07] LABS: Glucose Point of Care 105 mg/dL (70-110)
[2022-07-27 17:21] LABS: Basophils % 0.3 %; Eosinophils # 0.2 10^3/uL (0.0-0.8); Hematocrit 36.1 % (37.0-47.0); Hemoglobin 10.8 g/dL (11.5-15.3); Lymphocytes # 2.3 10^3/uL (0.8-4.8); Lymphocytes % 24.8 %; Mean Corpuscular HGB Conc 29.9 g/dL (30.0-36.0); Mean Corpuscular Hemoglobin 21.7 pg (28.0-34.0); Mean Corpuscular Volume 72.5 fl (81-99); Mean Platelet Volume 9.8 fL (7.4-10.4); Monocytes # 0.6 10^3/uL (0.2-0.9); Neutrophils # 5.99 10^3/uL (1.8-7.7); Neutrophils % 65.7 %; Nucleated Red Blood Cells % 0 %; Platelet Count 420 10^3/cmm (130-400); Red Blood Count 4.98 10^6/uL (4.1-5.3); Red Cell Distribution Width 14.8 % (12.1-15.1); White Blood Count 9.1 10^3/uL (4.0-10.0)
[2022-07-27 17:34] LABS: Alanine Aminotransferase 20 U/L (0-33); Albumin Level 4.3 g/dL (3.5-5.2); Alkaline Phosphatase 96 U/L (35-105); Anion Gap 15.5 (5-19); Aspartate Amino Transferase 19 U/L (0-32); Blood Urea Nitrogen 11 mg/dL (6-20); Calcium 9.9 mg/dL (8.5-10.5); Carbon Dioxide 27 mmol/L (22-29); Chloride 101 mmol/L (98-107); Creatinine Clr Calc Pharmacy 143.3784; Glomerular Filtration Rate 90.5 mL/min (90-130); Glucose 95 mg/dL (65-115); Osmolality Calculated 287 mOsm/kg (285-295); Potassium 4.5 mmol/L (3.5-5.1); Sodium 139 mmol/L (136-145); Total Bilirubin 0.3 mg/dL (0.15-1.2); Total Protein 7.3 g/dL (6.6-8.7)
[2022-07-27 19:22] VITALS: BP 129/57; PULSE 73; RESP 1; O2SAT 99
--- NOTE | 2022-07-27 19:28 | CTR_ITS ---
PROCEDURE INFORMATION: Exam: CT Head Without Contrast Exam date and time: 07/27/2022 8:32 PM Age: 21 years old Clinical indication: Syncope and collapse TECHNIQUE: Imaging protocol: Computed tomography of the head without contrast. Radiation optimization: All CT scans at this facility use at least one of these dose optimization techniques: automated exposure control; mA and/or kV adjustment per patient size (includes targeted exams where dose is matched to clinical indication); or iterative reconstruction. Other protocol: This patient has received 0 known CTs and 0 known cardiac nuclear medicine studies in the 12 months prior to the current study. COMPARISON: CT head wo con* [id number] 11/29/2019 9:03 PM RADIATION DOSE METRICS: Total DLP (mGy-cm): 1020.68 FINDINGS: Brain: Normal. No hemorrhage. Unremarkable white matter. No mass effect. Cerebral ventricles: No ventriculomegaly. Paranasal sinuses: Visualized sinuses are unremarkable. No fluid levels. Mastoid air cells: Visualized mastoid air cells are well aerated. Bones/joints: Unremarkable. No acute fracture. Soft tissues: Unremarkable. CT/CT head wo con* [id number] IMPRESSION: No acute intracranial abnormality.
--- NOTE | 2022-07-27 19:32 | ED_ITS ---
HPI - Syncope General: Chief Complaint: Syncope Stated Complaint: possible syncope Time Seen by Provider: 07/27/22 19:06 Source: patient Mode of arrival: ambulatory Limitations: no limitations History of Present Illness: 21-year-old female states that she is having physical therapy today for her repair of her ACL she states that she started have a mild headache became sweaty dizzy and felt like she got a pass out she states that she had to lay on the floor and this lasted 5 to 10 minutes. States she had 3 other episodes similar to this over the past month she has a mild headache currently she rates a 2 out of 10 denies any chest pain denies any vomiting denies any abdominal pain. Associated symptoms: Reports headache(s); Deny abdominal pain, fever(s) or nausea Review of Systems Const: Denies: fever(s), chills, body aches or change in appetite Eyes: Denies: blurry vision or eye discomfort ENMT: Denies: throat pain or dental pain Card: Reports: pre-syncope Resp: Denies: dyspnea GI: Denies: abdominal pain, nausea, vomiting or diarrhea : Denies: dysuria Musc: Denies: neck pain or back pain Skin/Breast: Denies: rash Neuro: Reports: headache(s) Psych: Denies: depression Driss/Lymph: Denies: easy bruising All/Imm: Denies: urticaria PFSH ED PFSH: Medical History Arthrofibrosis of knee joint Complete tear of anterior cruciate ligament of left knee Iron deficiency Status migrainosus Tears of meniscus and ACL of left knee Family History Other No pertinent family history Social History Smoking and tobacco status: never smoked History of recent travel: No Female Reproductive History: Date of last menstrual period: 02/26/22 Physical Exam Const: COMMON NORMALS: no acute distress, patient oriented x3 and healthy appearing HENMT: COMMON NORMALS: normocephalic and atraumatic HEAD & SCALP: normocephalic and atraumatic Eye: COMMON NORMALS: Equal, round and reactive pupils present and EOMs intact bilaterally PUPIL: Yes Equal, round and reactive pupils present Neck/C-Spine: COMMON NORMALS: full ROM and supple Chest: COMMONS NORMALS: normal inspection of the chest and normal palpation of entire chest wall Resp: COMMON NORMALS: normal respiratory effort, No retractions, No use of accessory muscles and clear to auscultation bilaterally AUSCULTATION: clear to auscultation bilaterally Cardio: COMMON NORMALS: regular rate, regular rhythm and No murmurs present (Cardio) RATE: regular rate RHYTHM: regular rhythm GI: COMMON NORMALS: Normal to inspection, nondistended, normoactive bowel sounds present, Soft to palpation, non-tender and no masses PALPATION: Yes Soft to palpation Extremity: COMMON NORMALS: normal to inspection and full ROM Neuro: COMMON NORMALS: patient oriented x3, moves all extremities and no focal motor deficits Psych: COMMON NORMALS: mental status grossly normal, Normal thought process present and cooperative THOUGHT PROCESS: Normal thought process present Skin: COMMON NORMALS: no rashes or lesions noted and no wounds GENERAL SKIN EXAM: no rashes or lesions noted Course Vital Signs: Vital signs: Vital Signs Temperature 97.8 F 07/27/22 16:39 Pulse Rate 73 07/27/22 19:22 Respiratory Rate 1 L 07/27/22 19:22 Blood Pressure 129/57 07/27/22 19:22 Pulse Oximetry 99 07/27/22 19:22 Oxygen Delivery Me thod 07/27/22 16:39 MDM - Syncope Medical Decision Making Patient presents with a near syncopal event she been well-appearing here with normal vital signs blood work EKG and head CT are all normal most likely a vagal response she is to follow-up with her PCP and return if worsening she understands agrees to plan. Lab Data 07/27/22 17:00 07/27/22 17:[address] 07/27/22 19:28 IMPRESSION: No acute intracranial abnormality. Laboratory Results WBC 9.1 10^3/uL (4.0-10.0) 07/27/22 17:00 RBC 4.98 10^6/uL (4.1-5.3) 07/27/22 17:00 Hgb 10.8 g/dL (11.5-15.3) L 07/27/22 17:00 Hct 36.1 % (37.0-47.0) L 07/27/22 17:00 MCV 72.5 fl (81-99) L 07/27/22 17:00 MCH 21.7 pg (28.0-34.0) L 07/27/22 17:00 MCHC 29.9 g/dL (30.0-36.0) L 07/27/22 17:00 RDW 14.8 % (12.1-15.1) 07/27/22 17:00 Plt Count 420 10^3/cmm (130-400) H 07/27/22 17:00 MPV 9.8 fL (7.4-10.4) 07/27/22 17:00 Neut % (Auto) 65.7 % 07/27/22 17:00 Lymph % (Auto) 24.8 % 07/27/22 17:00 Storey % (Auto) 7.0 % 07/27/22 17:00 Eos % (Auto) 2.0 % 07/27/22 17:00 Baso % (Auto) 0.3 % 07/27/22 17:00 Neut # (Auto) 5.99 10^3/uL (1.8-7.7) 07/27/22 17:00 Lymph # (Auto) 2.3 10^3/uL (0.8-4.8) 07/27/22 17:00 Storey # (Auto) 0.6 10^3/uL (0.2-0.9) 07/27/22 17:00 Eos # (Auto) 0.2 10^3/uL (0.0-0.8) 07/27/22 17:00 Baso # (Auto) 0.0 10^3/uL (0.0-0.1) 07/27/22 17:00 Nucleated RBC % (auto) 0 % 07/27/22 17:00 Nucleated RBCs # 0.0 /100WBC 07/27/22 17:00 Sodium 139 mmol/L (136-145) 07/27/22 17:00 Potassium 4.5 mmol/L (3.5-5.1) 07/27/22 17:00 Chloride 101 mmol/L (98-107) 07/27/22 17:00 Carbon Dioxide 27 mmol/L (22-29) 07/27/22 17:00 Anion Gap 15.5 (5-19) 07/27/22 17:00 BUN 11 mg/dL (6-20) 07/27/22 17:00 Creatinine 0.8 mg/dL (0.5-0.9) 07/27/22 17:00 GFR Calculation 90.5 mL/min (90-130) 07/27/22 17:00 Glucose 95 mg/dL (65-115) 07/27/22 17:00 POC Glucose 99 mg/dL (70-110) 07/27/22 19:34 Calculated Osmolality 287 mOsm/kg (285-295) 07/27/22 17:00 Calcium 9.9 mg/dL (8.5-10.5) 07/27/22 17:00 Total Bilirubin 0.3 mg/dL (0.15-1.2) 07/27/22 17:00 AST 19 U/L (0-32) 07/27/22 17:00 ALT 20 U/L (0-33) 07/27/22 17:00 Alkaline Phosphatase 96 U/L (35-105) 07/27/22 17:00 Total Protein 7.3 g/dL (6.6-8.7) 07/27/22 17:00 Albumin 4.3 g/dL (3.5-5.2) 07/27/22 17:00 Globulin 3.0 g/dL (1.3-4.6) 07/27/22 17:00 Urine Color Yellow (Yellow) 07/27/22 17:00 Urine Appearance Cloudy (CLEAR) A 07/27/22 17:00 Urine pH 5 (5-7) 07/27/22 17:00 Ur Specific [place] 1.025 (1.005-1.030) 07/27/22 17:00 Urine Protein 1+ (Negative) H 07/27/22 17:00 Urine Glucose (UA) Norm (Normal) 07/27/22 17:00 Urine Ketones Negative (Negative) 07/27/22 17:00 Urine Blood 2+ (Negative) H 07/27/22 17:00 Urine Nitrate Negative (Negative) 07/27/22 17:00 Urine Bilirubin 1+ (Negative) H 07/27/22 17:00 Urine Urobilinogen Norm mg/dL (Negative) 07/27/22 17:00 Ur Leukocyte Esterase Negative (Negative) 07/27/22 17:00 Urine RBC 0-4 /hpf (0-2) H 07/27/22 17:00 Urine WBC 0-4 /hpf (0-5) H 07/27/22 17:00 Ur Squamous Epith Cells 15-25 /hpf (0-5) H 07/27/22 17:00 Amorphous Sediment 4+ /hpf 07/27/22 17:00 Urine Bacteria 2+ /hpf (NONE) H 07/27/22 17:00 Urine HCG, Qual Negative (Negative) 07/27/22 17:00 EKG Data EKG 1: I personally reviewed and interpreted this EKG as follows: EKG interpretation date: 07/27/22 EKG interpretation time: 19:25 Interpretation: nsr hr [address] or twave abnormalities qrs 84 qtc 389 Discharge Plan Discharge Patient Disposition: Home Clinical Impression: Near syncope Condition: Stable Prescriptions: No Action (DME) Hinged Knee Brace Misc MISCELLANEOUS Discharge Orders: Discharge ED (Routine); Ordered 07/27/22 Ordered By: Elver Carlos Discharge Diet: Advance as tolerated Discharge Activity: Resume usual activity Patient Instructions: Near Syncope (ED) Coding Level of Care Code ED Head Start Coordinator for [facility]
[2022-07-27] MEDS: sodium chloride 0.9% 1,000 ML 999 ML IV (19:43)
[2022-07-27 19:50] LABS: Glucose Point of Care 99 mg/dL (70-110)
[2022-07-27 20:52] LABS: Add Urine Microscopic? YES; Bilirubin Urine 1+ (Negative); Blood Urine 2+ (Negative); Glucose Urine UA Norm (Normal); Ketones Urine Negative (Negative); Leukocyte Esterase Urine Negative (Negative); Nitrate Urine Negative (Negative); Protein Urine 1+ (Negative); Specific Gravity, Urine 1.025 (1.005-1.030); Urine Appearance Cloudy (CLEAR); Urine Color Yellow (Yellow); Urobilinogen Urine Norm (Negative); pH Urine 5 (5-7)
[2022-07-27 20:54] VITALS: BP 128/78; PULSE 85; RESP 21; O2SAT 100
[2022-07-27 20:54] LABS: Add Urine Culture? No; Amorphous Sediment Urine 4+ /hpf; Bacteria Urine 2+ /hpf; RBC Urine 0-4 /hpf (0-2); Squamous Epithelial Cell Urine 15-25 /hpf (0-5); WBC Urine 0-4 /hpf (0-5)
== END 2022-07-27 21:07 | disposition home or self-care (01) ==
PROVIDERS: Nurse Practitioner Family; Emergency Provider Emergency Medicine
DX: R55 Syncope and collapse (principal)
CPT/HCPCS: 36415; 36416; 70450; 80053; 81001; 81025; 82962; 85025; 93005; 96360; 99285; J7030

== ENCOUNTER 2025-03-02 16:09 | Outpatient (CLI) | payer SELFPAY ==
--- NOTE | 2025-03-02 16:28 | US_ITS ---
WS: [id number] US pelv w/transvag [id number] HISTORY: ABNORMAL MENSES COMPARISON: None available. Uterus: 8.0 cm x 4.8 cm x 4.4 cm. Normal size retroverted uterus. No fibroid or mass. Endometrium: 0.6 cm. Normal. No increased vascularity. Right ovary: 2.8 cm x 1.8 cm x 2.0 cm. Normal size and vascularity, no cystic or solid masses. Small follicles. Left ovary: 2.7 cm x 1.4 cm x 2.2 cm. Normal size and vascularity, no cystic or solid masses. Small follicles. No free fluid in the cul-de-sac. US/US pelv w/transvag [id number] IMPRESSION: 1. Normal endometrium. 2. Normal uterus. 3. No free fluid. 4. Negative ovaries.
== END 2025-03-02 16:10 | disposition home or self-care (01) ==
PROVIDERS: Visit Provider Nurse Practitioner Family
DX: N92.6 Irregular menstruation, unspecified (principal); N83.02 Follicular cyst of left ovary; N83.01 Follicular cyst of right ovary
CPT/HCPCS: 76830; 76856

== ENCOUNTER → 2025-06-15 10:30 | Outpatient (BNVA) | payer SELFPAY | PROVIDERS: Referring Provider Family Medicine; Visit Provider Internal Medicine Rheumatology | DX: M54.50 Low back pain, unspecified (principal); Z98.890 Other specified postprocedural states | CPT/HCPCS: 36415; 72040; 72100; 80076; 82306; 82565; 83520; 85025; 85651; 86140 ==